=== PATIENT | male | born 1965 | race Two or more races ===

== ENCOUNTER 2017-03-17 20:08 | Emergency (ER) | payer BC ==
[2017-03-17] MEDS ORDERED: HYDROmorphone 1 MG/ML 1 ML SYRINGE IM STA (20:17)
[2017-03-17 20:26] VITALS: RESP 20
--- NOTE | 2017-03-17 21:55 | XR ---
EXAMINATION TYPE: XR thoracic spine complete DATE OF EXAM: 03/17/2017 COMPARISON: NONE HISTORY: Pain TECHNIQUE: 4 views FINDINGS: Thoracic vertebra have normal alignment. Posterior elements are intact. I see no compressio n fracture. There is no paraspinal mass. IMPRESSION: Negative thoracic spine exam. Upper thoracic vertebra are not well seen in the lateral vi ew.
--- NOTE | 2017-03-17 21:57 | XR ---
EXAMINATION TYPE: XR ribs RT w pa chest xray DATE OF EXAM: 03/17/2017 COMPARISON: NONE HISTORY: Pain TECHNIQUE: 6 views FINDINGS: I see no pleural effusion or pneumothorax. Heart and mediastinum are normal. Lungs are mayur r of consolidation. There is a nondisplaced fracture lateral right ninth rib. IMPRESSION: Nondisplaced fracture right ninth rib. Normal heart.
[2017-03-17] MEDS ORDERED: ONDANSETRON 4 MG/2 ML VIAL IVP STA (22:14)
[2017-03-17] MEDS ORDERED: KETOROLAC 30 MG/ML 1 ML VIAL IVP STA (22:14)
[2017-03-17] MEDS ORDERED: HYDROmorphone 1 MG/ML 1 ML SYRINGE IVP STA (22:14)
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
[2017-03-17 23:27] VITALS: BP 132/68; PULSE 72; TEMP 98
== END 2017-03-17 23:10 | disposition home or self-care (01) ==
LOC: EC 20:08
DX: S22.31XA Fracture of one rib, right side, initial encounter for closed fracture (principal); I10 Essential (primary) hypertension; Z79.82 Long term (current) use of aspirin; Z79.899 Other long term (current) drug therapy; V86.09XA Driver of other special all-terrain or other off-road motor vehicle injured in traffic accident, initial encounter
CPT/HCPCS: 71101; 72072; 99285; 96374; 96375 ×2; J2405; J1885; J1170

== ENCOUNTER → 2020-12-07 | Outpatient (CLI) | payer OTHER ==
--- NOTE | 2020-12-07 14:04 | CT ---
EXAMINATION TYPE: CT abdomen pelvis wo con DATE OF EXAM: 12/07/2020 HISTORY: calculus of ureter CT DLP: 1171.60 mGycm. Automated Exposure Control for Dose Reduction was Utilized. TECHNIQUE: CT scan of the abdomen and pelvis is performed without oral or IV contrast. COMPARISON: NONE at this institution. FINDINGS: Within the limitations of a non-contrast study, the following observations are made. LUNG BASES: No significant abnormality is appreciated. LIVER/GB: No significant abnormality is appreciated. PANCREAS: No significant abnormality is seen. SPLEEN: No significant abnormality is seen. ADRENALS: No significant abnormality is seen. KIDNEYS: No renal stones or hydronephrosis is present bilaterally. There is 6 mm dependent calculus i n the bladder left of midline axial image 130. BOWEL: Suboptimal evaluation without enteric contrast. No suspicious small or large bowel dilatation. Few diverticula in the sigmoid colon. No CT evidence for acute diverticulitis. Some areas of mild wa ll thickening without surrounding fat stranding likely product of poor distention. Normal appendix fr om cecum. GENITAL ORGANS: Mildly enlarged prostate bulging on bladder base. LYMPH NODES: No greater than 1cm abdominal or pelvic lymph nodes are appreciated. OSSEOUS STRUCTURES: [id number] disc space narrowing with vacuum disc phenomenon at L5-S1 level. OTHER: No significant additional abnormality is seen. IMPRESSION: There is 6 mm intraluminal calculus in the bladder.
== END | disposition home or self-care (01) ==
LOC: RADCTMAIN 13:18
PROVIDERS: ATTEND Urology
DX: N21.0 Calculus in bladder (principal)
CPT/HCPCS: 74176